=== PATIENT | male | born 1985 | race Caucasian/White ===

== ENCOUNTER 2017-09-03 20:01 | Emergency (ER) | payer OTHER ==
[2017-09-03] MEDS ORDERED: SILVER SULFADIAZINE 25 GM 1 APPL TUBE TP ONE (20:18)
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
[2017-09-03 20:45] VITALS: BP 129/70
== END 2017-09-03 20:30 | disposition home or self-care (01) ==
LOC: ED 20:01
DX: T22.132A Burn of first degree of left upper arm, initial encounter (principal); T22.131A Burn of first degree of right upper arm, initial encounter; T20.10XA Burn of first degree of head, face, and neck, unspecified site, initial encounter; X58.XXXA Exposure to other specified factors, initial encounter; Y92.9 Unspecified place or not applicable; Y93.G2 Activity, grilling and smoking food; Y99.9 Unspecified external cause status
CPT/HCPCS: 99282

== ENCOUNTER 2018-05-01 13:50 | Outpatient (CLI) | payer OTHER ==
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
== END 2018-05-01 13:53 ==
LOC: RAD 13:50
PROVIDERS: ATTEND Nurse Practitioner Family
DX: S19.9XXA Unspecified injury of neck, initial encounter (principal); X58.XXXA Exposure to other specified factors, initial encounter; Y93.72 Activity, wrestling; Y92.9 Unspecified place or not applicable
CPT/HCPCS: 72040

== ENCOUNTER 2018-10-08 11:25 | Emergency (ER) | payer OTHER ==
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
[2018-10-08] MEDS ORDERED: DIPH,PERTUSS(ACELL),TET VAC/PF 0.5 ML DISP.SYRIN IM ONE (11:51)
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
[2018-10-08] MEDS ORDERED: KETOROLAC TROMETHAMINE 60 MG/2 ML VIAL IM ONE (13:05)
[2018-10-08] MEDS ORDERED: CYCLOBENZAPRINE HCL 10 MG TABLET PO ONE (13:05)
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
[2018-10-08 14:08] VITALS: BP 125/80
== END 2018-10-08 14:07 | disposition home or self-care (01) ==
LOC: ED 11:25
DX: S60.511A Abrasion of right hand, initial encounter (principal); S60.512A Abrasion of left hand, initial encounter; S50.02XA Contusion of left elbow, initial encounter; V89.2XXA Person injured in unspecified motor-vehicle accident, traffic, initial encounter
CPT/HCPCS: 70450; 72125; 73080; 73110; 73130; 90471; 90715; 96372; 99283; 99284; J1885